=== PATIENT | female | born 1960 | race Caucasian/White ===

== ENCOUNTER 2017-10-11 08:57 | Day surgery (SDC) | payer OTHER ==
[2017-10-11] MEDS ORDERED: BUPIVACAINE 0.5% 30 ML SDV ONE (09:00)
[2017-10-11] MEDS ORDERED: LIDOCAINE 1% 2 ML INJ ID PRN (09:25)
[2017-10-11] MEDS ORDERED: LR 1,000 ML IV ONE (09:25)
[2017-10-11] MEDS ORDERED: MIDAZOLAM 2 MG/2 ML VIAL IVP ONE (10:15)
--- NOTE | 2017-10-11 10:16 | PDANEPAE ---
ANE History of Present Illness finger ANE Past Medical History - Cardiovascular History Hx Hypertension: Yes Hx Arrhythmias: No Hx Chest Pain: No Hx Coronary Artery / Peripheral Vascular Disease: No Hx CHF / Valvular Disease: No Hx Palpitations: No - Pulmonary History Hx COPD: No Hx Asthma/Reactive Airway Disease: No Hx Recent Upper Respiratory Infection: No Hx Oxygen in Use at Home: No Hx Sleep Apnea: No Sleep Apnea Screening Result - Last Documented: Negative Pulmonary History Comment: mild emphysema - Neurologic History Hx Cerebrovascular Accident: No Hx Seizures: No Hx Dementia: No - Endocrine History Hx Diabetes: No - Renal History Hx Renal Disorders: No - Liver History Hx Hepatic Disorders: No - Neurological & Psychiatric Hx Hx Neurological and Psychiatric Disorders: Yes Neurological / Psychiatric History Comment: depression,anxiety - Cancer History Hx Cancer: No - Congenital Disorder History Hx Congenital Disorders: No - GI History Hx Gastrointestinal Disorders: No - Other Health History Other Health History: none - Chronic Pain History Chronic Pain: Yes (chronic hip pain periformis right) - Surgical History Prior Surgeries: bilat cataract ANE Review of Systems Review of Systems: - Exercise capacity METS (RN): 5 METS ANE Patient History - Allergies Allergies/Adverse Reactions: banana Allergy (Verified 10/11/17 09:38) cat dander Allergy (Verified 10/10/17 16:02) enviromental Allergy (Severe, Uncoded 10/11/17 09:38) Swelling/neck,face,throat - Home Medications Home Medications: Adderall 10 MG (*) 10/10/17 [Last Taken 10/09/17] Hydrocodone-Acetamin 5-325 mg 10/10/17 [Last Taken 10/10/17] Lisinopril 10/10/17 [Last Taken 10/11/17 05:30] Rosuvastatin Calcium 10/10/17 [Last Taken 10/10/17] Synthroid 10/10/17 [Last Taken 10/11/17 05:30] Venlafaxine HCl 10/10/17 [Last Taken 10/11/17 05:30] - NPO status NPO Since - Liquids (Date): 10/11/17 NPO Since - Liquids (Time): 05:30 NPO Since - Solids (Date): 10/10/17 NPO Since - Solids (Time): 21:00 - Anes Hx Anes Hx: no prior problems - Smoking Hx Smoking Status: Current some day smoker - Family Anes Hx Family Hx Anesthesia Complications: none ANE Labs/Vital Signs - Vital Signs Blood Pressure: 122/82 Heart Rate: 59 Respiratory Rate: 16 O2 Sat (%): 95 Height: 162.56 cm Weight: 59.874 kg ANE Physical Exam - Airway Mallampati Score: Class 2 Mouth exam: normal dental/mouth exam - Pulmonary Pulmonary: no respiratory distress - Cardiovascular Cardiovascular: regular rate and rhythym - ASA Status ASA Status: II ANE Anesthesia Plan Anesthesia Plan: MAC
--- NOTE | 2017-10-11 10:18 | PDHPUP ---
History & Physical Update H&P update statement: This history and physical update is based on an assessment of the patient which was completed after admission or registration (within 24 hours), but prior to the surgery/procedure. H&P update: no change in patient's condition since H&P completed
[2017-10-11] MEDS ORDERED: LIDOCAINE 2% 5 ML SDV ONE (10:29)
[2017-10-11] MEDS ORDERED: ONDANSETRON 4 MG/2 ML VIAL ONE (10:29)
[2017-10-11] MEDS ORDERED: KETOROLAC 30 MG/1 ML SDV ONE (10:29)
[2017-10-11] MEDS ORDERED: DEXAMETHASONE 4 MG/ML VIAL ONE (10:29)
[2017-10-11] MEDS ORDERED: PROPOFOL/EMULSION 500 MG/50 ML BOTTLE IV ONE (10:30)
[2017-10-11] MEDS ORDERED: fentaNYL 100 MCG/2 ML INJ IVP PRN (11:11)
[2017-10-11] MEDS ORDERED: ONDANSETRON 4 MG/2 ML VIAL IVP PRN (11:11)
[2017-10-11] MEDS ORDERED: HYDROmorphONE/DILAUDID 2 MG/ML INJ IVP PRN (11:11)
[2017-10-11] MEDS ORDERED: NALOXONE HCL 0.4 MG/ML INJ IVP PRN (11:11)
[2017-10-11] MEDS ORDERED: LR 500 ML IV PRN (11:11)
[2017-10-11] MEDS ORDERED: PHENYLEPHRINE HCL 100 MCG/ML SYR IVP PRN (11:11)
[2017-10-11] MEDS ORDERED: ALBUTEROL 3 ML DEYVIAL IH PRN (11:11)
[2017-10-11] MEDS ORDERED: epHEDrine SULFATE 10 MG/ML SYR ONE (11:34)
--- NOTE | 2017-10-11 11:34 | POSTOPPROG ---
Post Op Note Date of Operation: 10/11/17 Surgeon: Mark Leary Building Maintenance Technician: none Anesthesiologist: Pranav Harrington Anesthesia: Epidural, IV Sedation, LMA Pre-op Diagnosis: Amputation left index tip Post-op Diagnosis: same Indication: as above Procedure: debridement and V-Y advancement flap closure Findings: as above Inf/Abcess present in the surg proc area at time of surgery?: No Depth: Deep Incisional (Fascial) EBL: Minimal Total fluids administered: 600cc Specimen(s): none
--- NOTE | 2017-10-11 11:44 | POSTANESTH ---
Post Anesthetic Evaluation Cardiovascular Status: Normal, Stable, Tx Hyper/Hypo-tension Respiratory Status: Normal, Stable Level of Consciousness/Mental Status: Can Participate in Eval Pain Control: Adequate, Prn Tx Ordered Nausea/Vomiting Control: Adequate, Prn Tx Ordered Complications Possibly Related to Anesthesia: None Noted
--- NOTE | 2017-10-11 12:09 | GOP ---
[f rep st] OPERATIVE REPORT DATE OF OPERATION: 10/11/2017 SURGEON: Mark Leary MD PREOPERATIVE DIAGNOSIS: Left index finger tip amputation. POSTOPERATIVE DIAGNOSIS: Left index finger tip amputation. PROCEDURE PERFORMED: Debridement of bone and soft tissue, rounding of the tip of the distal phalanx, and then V-Y advancement flap closure. FINDINGS: INDICATIONS: This patient lost the pulp of the left index finger down to distal phalanx. This was f rom a point just distal to the DIP flexion crease and she needed soft tissue coverage as well as skin coverage. It was felt that a V-Y advancement flap was a good option for her. DESCRIPTION OF PROCEDURE: Under digital block anesthesia using 5 cc of 0.5% plain Marcaine at the ba se of the left index finger, the finger achieved adequate anesthesia. Monitored anesthesia care and sedation were provided by Anesthesiology. Patient's left arm was prepped and draped in the usual fas hion. A David drain tourniquet was applied at the base of the left index finger and then debrideme nt of bone and soft tissue was performed. The nail plate was shortened back to nail bed and then the distal phalanx was debrided and rounded. The soft tissue granulation and organized hematoma was rem [place]. The finger was cleansed carefully and then a V-Y advancement flap was designed extending past the DIP flexion crease by about 1 cm and this flap was mobilized and advanced down to the tip of the digit. There, tacking sutures were placed, a total of 5 sutures, simple interrupted sutures were mike sigrid, one through the nail bed and into the tip of the flap, one on each side of the end of the flap, and then one on each side of the flap part way down. The [place] drain tourniquet was removed and th e flap pinked up very nicely. The finger was then dressed with a bulky soft pressure dressing and th en dorsal fiberglass splint extending down index and long from the midforearm was applied and held in place with an Bladimir bandage. It was decided to go onto the forearm in order to prevent wrist flexion and venous congestion. She was brought from the operating room to recovery room in good condition, inna bermudez detailed postoperative instructions prior to discharge. Prescriptions for Percocet and Keflex h ad been provided preoperatively. It was felt that continued antibiotics for a full week postop would be a good idea based on the extent of damage, and so a prescription for continued Keflex 3 times a d ay was provided. Followup arrangements in the office for about a week postop for dressing change and re-dressing. It was felt that probably sutures would need to stay in place for an additional week. /[id number]/MODL
[2017-10-11 12:34] VITALS: BP 103/70
== END 2017-10-11 13:00 | disposition home or self-care (01) ==
LOC: FSGY 08:57
PROVIDERS: ATTEND Specialist
PROC: 0JXK0ZB Transfer Left Hand Subcutaneous Tissue and Fascia with Skin and Subcutaneous Tissue, Open Approach (ICD-10-PCS; principal; 2017-10-11 10:15)
PROC: 0JBK0ZZ Excision of Left Hand Subcutaneous Tissue and Fascia, Open Approach (ICD-10-PCS; principal; 2017-10-11 10:15)
DX: S68.621A Partial traumatic transphalangeal amputation of left index finger, initial encounter (principal); Y99.0 Civilian activity done for income or pay; W23.1XXA Caught, crushed, jammed, or pinched between stationary objects, initial encounter; Y92.513 Shop (commercial) as the place of occurrence of the external cause
CPT/HCPCS: J1100; J1885; J2250; J2405; J2704